=== PATIENT | male | born 1980 | race American Indian/Alaskan Native ===

== ENCOUNTER 2018-10-02 08:22 | Emergency (ER) | payer OTHER ==
[2018-10-02 08:29] VITALS: BP 128/86
[2018-10-02] MEDS ORDERED: IBUPROFEN PO ONE (08:38)
[2018-10-02] MEDS ORDERED: ULTRAM PO ONE (08:38)
--- NOTE | 2018-10-02 08:57 | XRay Report ---
LEFT FOOT, 3 views: History: Swelling and pain. The bony architecture is intact. Bony alignment is normal. No soft tissue abnormalities are seen. The joint spaces appear preserved. IMPRESSION: Normal left foot.
--- NOTE | 2018-10-02 09:48 | Emergency Department Report ---
ED Extremity Problem HPI - General Chief complaint: Extremity Problem,Nontraumatic Stated complaint: LT FOOT SWOLLEN Time Seen by Provider: 10/02/18 08:37 Source: patient Mode of arrival: Ambulatory Limitations: No Limitations - History of Present Illness Initial comments: Patient is a 38-year-old [place] male who states he's had pain in his left foot for the last 2 days. Patient states that the pain is was not traumatic injuries not remember any specific injury. 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 Patient states that there is swelling. Pain is aching and throbbing 6 out of 10 in severity. He denies any fevers chills nausea vomiting at this time. Patient has no history of joint swelling or gout. Severity scale (0 -10): 10 - Related Data Previous Rx's Medication Instructions Recorded Last Taken Type Clindamycin [Clindamycin CAP] 300 mg PO Q8H #21 cap 10/02/18 Unknown Rx Ibuprofen [Motrin 800 MG tab] 800 mg PO Q8HR PRN #10 tablet 10/02/18 Unknown Rx traMADol [Ultram] 50 mg PO Q6HR PRN #12 tablet 10/02/18 Unknown Rx Allergies Allergy/AdvReac Type Severity Reaction Status Date / Time No Known Allergies Allergy Unverified 10/02/18 08:28 ED Review of Systems ROS: Stated complaint: LT FOOT SWOLLEN Other details as noted in HPI Comment: All other systems reviewed and negative ED Past Medical Hx - Past Medical History Previous Medical History?: No - Surgical History Past Surgical History?: Yes Additional Surgical History: Broken jaw - Social History Smoking Status: Never Smoker Substance Use Type: Marijuana - Medications Home Medications: Home Medications Medication Instructions Recorded Confirmed Last Taken Type Clindamycin [Clindamycin CAP] 300 mg PO Q8H #21 cap 10/02/18 Unknown Rx Ibuprofen [Motrin 800 MG tab] 800 mg PO Q8HR PRN #10 tablet 10/02/18 Unknown Rx traMADol [Ultram] 50 mg PO Q6HR PRN #12 tablet 10/02/18 Unknown Rx ED Physical Exam - General Limitations: No Limitations General appearance: alert, in no apparent distress - Head Head exam: Present: atraumatic, normocephalic - Eye Eye exam: Present: normal appearance - ENT ENT exam: Present: mucous membranes moist - Neck Neck exam: Present: normal inspection - Respiratory Respiratory exam: Present: normal lung sounds bilaterally. Absent: respiratory distress, wheezes, rales, rhonchi - Cardiovascular Cardiovascular Exam: Present: regular rate, normal rhythm. Absent: systolic murmur, diastolic murmur, rubs, gallop - GI/Abdominal GI/Abdominal exam: Present: soft, normal bowel sounds. Absent: distended, tenderness, guarding, rebound - Rectal Rectal exam: Present: deferred - Extremities Exam Extremities exam: Present: normal inspection - Expanded Lower Extremity Exam Left Foot/Toe exam: Present: tenderness, swelling, erythema (with warmth at the dorsum of the foot). Absent: deformity - Back Exam Back exam: Present: normal inspection - Neurological Exam Neurological exam: Present: alert, oriented X3 - Psychiatric Psychiatric exam: Present: normal affect, normal mood - Skin Skin exam: Present: warm, dry, intact, normal color. Absent: rash ED Course Vital Signs 10/02/18 08:27 Temperature 98.1 F Pulse Rate 73 Respiratory 16 Rate Blood Pressure 128/86 O2 Sat by Pulse 97 Oximetry ED Medical Decision Making - Lab Data Lab Results 10/02/18 Range/Units 09:00 Uric Acid 5.3 (3.5-7.6) mg/dL - Radiology Data X-ray of the left foot shows no acute process. There are no foreign bodies or evidence of fracture - Medical Decision Making Patient is a 38-year-old black male who has some erythema warmth and swelling to the dorsum of his left foot. This been developing progressively worsening over the last 2 days. Patient has a normal uric acid making gout less likely. Patient likely has some break of the skin did allow some bacteria to start to proliferate. Patient diagnosed with early cellulitis will be started on antibiotics. Patient discharged home with follow-up with podiatry. Critical care attestation.: If time is entered above; I have spent that time in minutes in the direct care of this critically ill patient, excluding procedure time. ED Disposition Clinical Impression: Cellulitis of foot Disposition: TO HOME OR SELFCARE Is pt being admited?: No Does the pt Need Aspirin: No Condition: Stable Instructions: Cellulitis (ED) Referrals: KASSIE SIDHU DPM [Staff Physician] - 3-5 Days LUCEDALE MICHELE CHAVEZ MD [Primary Care Provider] - 3-5 Days Time of Disposition: 09:47
== END 2018-10-02 10:01 | disposition home or self-care (01) ==
LOC: ED 08:22
DX: L03.116 Cellulitis of left lower limb (principal); F12.10 Cannabis abuse, uncomplicated
CPT/HCPCS: 36415; 84550